=== PATIENT | male | born 1935 | race Caucasian/White ===

== ENCOUNTER 2018-06-30 19:53 | Emergency (ER) | payer MEDICARE ==
[2018-06-30 20:06] VITALS: BP 136/64; PULSE 65; RESP 16; TEMP 98.6
[2018-06-30] MEDS ORDERED: GELATIN SPONGE,ABSORB (LARGE) 1 EACH SPONGE TOPICAL STA (20:32)
--- NOTE | 2018-06-30 20:40 | ED ---
Wound/Laceration HPI - General Source: patient Mode of arrival: ambulatory Limitations: no limitations <Verena Perez - Last Filed: 06/30/18 20:41> <Mayur Bronson - Last Filed: 06/30/18 21:29> - General Chief Complaint: Wound/Laceration Stated Complaint: arm lac Time Seen by Provider: 06/30/18 20:15 - History of Present Illness Initial Comments: 83-year-old male past medical history of atrial fibrillation on warfarin, hypertension and diabetes who presents today for chief complaint of skin tear of left forearm. patient states that 5 PM last night he was taking a bike off of the rack when the handlebar scraped against his left dorsal forearm scraping off the skin. He stated that it hasn't stopped bleeding since then, he is somewhat applying pressure. He was seen yesterday in office for a INR which he stated was 2.5. Patient presented to the ER today to see if we could get the bleeding to stop. Pt stated that while in the waiting room, it pretty much stopped bleeding. Pt states tetanus was updated last year. Patient denies any recent fever, chills, shortness of breath, chest pain, back pain, abdominal pain , nausea or vomiting, numbness or tingling, dysuria or hematuria, constipation or diarrhea, headaches or visual changes, or any other complaints. (Verena Perez) - Related Data Allergies Allergy/AdvReac Type Severity Reaction Status Date / Time Penicillins Allergy Unknown Verified 06/30/18 20:06 Review of Systems ROS Other: All systems not noted in ROS Statement are negative. Constitutional: Denies: fever, chills Eyes: Denies: vision change Respiratory: Denies: cough, dyspnea Cardiovascular: Denies: chest pain, palpitations Endocrine: Denies: fatigue Gastrointestinal: Denies: abdominal pain, nausea, vomiting Genitourinary: Denies: urgency, dysuria Musculoskeletal: Denies: back pain Skin: Reports: as per HPI. Denies: rash, lesions Neurological: Denies: numbness, paresthesias, confusion <Verena Perez - Last Filed: 06/30/18 20:41> ROS Other: All systems not noted in ROS Statement are negative. <Mayur Bronson - Last Filed: 06/30/18 21:29> ROS Statement: Those systems with pertinent positive or pertinent negative responses have been documented in the HPI. Past Medical History Past Medical History: Atrial Fibrillation, Diabetes Mellitus, Hyperlipidemia, Hypertension, Myocardial Infarction (DC) History of Any Multi-Drug Resistant Organisms: None Reported Past Surgical History: No Surgical Hx Reported Past Psychological History: No Psychological Hx Reported Smoking Status: Former smoker Past Alcohol Use History: None Reported Past Drug Use History: None Reported <Arabella Perezvaleria Dumont - Last Filed: 06/30/18 20:41> General Exam Limitations: no limitations <Verena Perez - Last Filed: 06/30/18 20:41> <Mayur Bronson - Last Filed: 06/30/18 21:29> - General Exam Comments Initial Comments: General: The patient is awake and alert, in no distress, and does not appear acutely ill. . Cardiovascular: There is a regular rate and rhythm. No murmur, rub or gallop is appreciated. Respiratory: Lungs are clear to auscultation, respirations are non-labored, breath sounds are equal. No wheezes, stridor, rales, or rhonchi. Musculoskeletal: Normal ROM of the UE, no tenderness. Strength 5/5 of the UE equally b/l. Sensation intact. Pulses equal bilaterally 2+. Neurological: A&O x 3. CN II-XII intact, There are no obvious motor or sensory deficits. Coordination appears grossly intact. Speech is normal. Skin: Skin is warm and dry and no rashes. 4.5 cm irregularly shaped skin tear about 1cm in diameter to the dorsal aspect of the left forearm. Minimal active bleeding at time of evaluation. No flap or deep laceration. Superficial skin tear. Psychiatric: Cooperative, appropriate mood & affect, normal judgment. (Verena Perez) Course <HanVerena hickey - Last Filed: 06/30/18 20:41> <Mayur Bronson - Last Filed: 06/30/18 21:29> Vital Signs 06/30/18 19:59 Temperature 98.6 F Pulse Rate 65 Respiratory 16 Rate Blood Pressure 136/64 O2 Sat by Pulse 93 L Oximetry - Reevaluation(s) Reevaluation #1: 06/30/18 21:29 PA supervision: I personally saw and examined the patient. I reviewed and agree with the PAs findings including all diagnostic interpretations treatment plans is written unless otherwise stated. (Mayur Bronson) Medical Decision Making <Verena Perez - Last Filed: 06/30/18 20:41> <Mayur Bronson - Last Filed: 06/30/18 21:29> - Medical Decision Making Wound cleansed with iodine and sterile water. Gel foam applied. Wrapped with a tight fitting sterile bandage. Hemestasis obtained, pt discharged in stable condition as pt was evaluated in person by Dr. Bronson who agreed with impression and plan. (Verena Perez) Disposition Is patient prescribed a controlled substance at d/c from ED?: No Time of Disposition: 20:40 <Verena Perez - Last Filed: 06/30/18 20:41> <Mayur Bronson - Last Filed: 06/30/18 21:29> Clinical Impression: Skin tear of left forearm without complication Disposition: HOME SELF-CARE Condition: Good Instructions: Abrasion (ED) Additional Instructions: Please follow-up with family doctor in the next 2 days of symptoms have not improved. Please return to emergency room if the symptoms increase or worsen or for any other concerns. Referrals: Nonstaff,Physician [Primary Care Provider] - 1-2 days
== END 2018-06-30 20:55 | disposition home or self-care (01) ==
LOC: EC 19:53
DX: S51.812A Laceration without foreign body of left forearm, initial encounter (principal); Z87.891 Personal history of nicotine dependence; Z88.0 Allergy status to penicillin; W26.8XXA Contact with other sharp object(s), not elsewhere classified, initial encounter; Y92.009 Unspecified place in unspecified non-institutional (private) residence as the place of occurrence of the external cause; Y93.89 Activity, other specified
CPT/HCPCS: 99282